=== PATIENT | female | born 1940 | race Caucasian/White ===

== ENCOUNTER 2016-10-26 15:58 | Emergency (ER) | payer OTHER, BC ==
[~2016-10-26] VITALS: Ht 162.6 cm; Wt 63.4 kg
[2016-10-26] MEDS ORDERED: PREDNISONE50 MG PO (16:55)
[2016-10-26] MEDS ORDERED: NORCO 5/3251 TABLET PO (16:55)
[2016-10-26 17:22] VITALS: BP 175/83
== END 2016-10-26 17:26 | disposition home or self-care (01) ==
LOC: EME 15:58
DX: M54.32 Sciatica, left side (principal); Z87.891 Personal history of nicotine dependence
CPT/HCPCS: 99281; 99284